=== PATIENT | female | born 1975 | race Caucasian/White ===

== ENCOUNTER 2018-07-24 09:46 | Emergency (ER) | payer BC ==
[2018-07-24 10:27] LABS: URINE BLOOD (Dip) POC 2+ (NEGATIVE); URINE GLUCOSE (Dip) POC Negative (NEGATIVE); URINE KETONES (Dip) POC Negative (NEGATIVE); URINE LEUKOCYTE EST (Dip) POC 2+ (NEGATIVE); URINE NITRITE (Dip) POC Negative (NEGATIVE); URINE TOTAL PROTEIN POC Negative (NEGATIVE)
[2018-07-24] MEDS: CIPROFLOXACIN 500 MG TAB PO (11:20)
== END 2018-07-24 11:39 | disposition home or self-care (01) ==
LOC: FTE 09:46
DX: N39.0 Urinary tract infection, site not specified (principal)
CPT/HCPCS: 81003; 81025; 99283

== ENCOUNTER 2018-11-16 08:01 | Inpatient (IN) | payer BC ==
[2018-11-16 08:35] LABS: ADD MAN DIFF? NO
[2018-11-16] MEDS: ONDANSETRON 4 MG INJ IV (08:38)
[2018-11-16] MEDS: LIDOCAINE/MYLANTA 40 ML BTL PO (08:38)
[2018-11-16] MEDS: KETOROLAC 15 MG INJ IV (08:38)
[2018-11-16] MEDS: BELLADONNA/PHENOBARBITAL TAB PO (08:38)
[2018-11-16] MEDS: SOD CHLORIDE 0.9% 1,000 ML IV ×2 (08:39→13:48)
[2018-11-16 08:41] LABS: WHITE BLOOD COUNT 22.7 10^3/ul (4.8-10.8)
[2018-11-16 08:41] LABS: BASOPHIL # 0.1 10^3/ul (0.0-0.1); BASOPHILS % 0.3 % (0.0-2.0); HEMATOCRIT 37.7 % (37.0-47.0); HEMOGLOBIN 12.5 g/dl (12.0-16.0); LYMPHOCYTES # 2.5 10^3/ul (0.8-2.9); LYMPHOCYTES % 11.1 % (15.0-51.0); MEAN CORPUSCULAR HEMOGLOBIN 28.2 pg (29.0-33.0); MEAN CORPUSCULAR HGB CONC 33.2 g/dl (32.0-37.0); MEAN CORPUSCULAR VOLUME 85.1 fl (82.0-101.0); MEAN PLATELET VOLUME 9.3 fl (7.4-10.4); MONOCYTE # 1.1 10^3/ul (0.3-0.9); MONOCYTES % 4.7 % (0.0-11.0); NEUTROPHILS % 83.4 % (39.0-77.0); PLATELET COUNT 343 10^3/UL (140-415); RED BLOOD COUNT 4.43 10^6/ul (4.20-5.40); RED CELL DISTRIBUTION WIDTH 13.7 % (11.5-14.5)
[2018-11-16 08:49] LABS: ADD UMIC YES; UR ASCORBIC ACID NEGATIVE (NEGATIVE); UR BILIRUBIN (Dip) NEGATIVE (NEGATIVE); UR BLOOD (Dip) 3+ mg/dL (NEGATIVE); UR CLARITY CLOUDY (CLEAR); UR COLOR YELLOW (YELLOW); UR GLUCOSE (Dip) NEGATIVE (NEGATIVE); UR KETONES (Dip) NEGATIVE (NEGATIVE); UR LEUKOCYTE ESTERASE (Dip) NEGATIVE Leu/ul (NEGATIVE); UR MUCUS FEW /HPF (NONE SEEN); UR NITRITE (Dip) NEGATIVE (NEGATIVE); UR RBC 12 /HPF (0-5); UR SPECIFIC GRAVITY (Dip) 1.027 (1.003-1.030); UR SQUAMOUS EPITHELIAL CELL MODERATE /HPF (FEW); UR TOTAL PROTEIN (Dip) 1+ mg/dl (NEGATIVE); UR UROBILINOGEN (Dip) NEGATIVE (NEGATIVE); UR WBC 3 /HPF (0-5)
[2018-11-16 08:59] LABS: PARTIAL THROMBOPLASTIN TIME 27.5 Sec (23.0-35.0); PROTIME 12.3 Sec (11.9-14.9)
[2018-11-16 09:14] LABS: ALANINE AMINOTRANSFERASE 28 IU/L (13-69); ALBUMIN 4.1 g/dl (3.3-4.9); ALBUMIN/GLOBULIN RATIO 1.13; ALKALINE PHOSPHATASE 83 IU/L (42-121); ANION GAP 12 (5-13); ASPARTATE AMINO TRANSFERASE 28 IU/L (15-46); BILIRUBIN,INDIRECT 0.7 mg/dl (0-1.1); BILIRUBIN,TOTAL 0.7 mg/dl (0.2-1.3); BLOOD UREA NITROGEN 9 mg/dl (7-20); CARBON DIOXIDE 24 mmol/L (21-31); CHLORIDE 100 mmol/L (97-110); CREATININE 0.51 mg/dl (0.44-1.00); Estimated GFR > 60 mL/min (>60); GLUCOSE 178 mg/dl (70-220); LIPASE 202 U/L (23-300); POTASSIUM 3.7 mmol/L (3.5-5.1); SODIUM 136 mmol/L (135-144); TOTAL PROTEIN 7.7 g/dl (6.1-8.1)
[2018-11-16] MEDS: PIPER-TAZO 3.375 GM IV (PMX) 100 ML IVPB (10:39)
[2018-11-16] MEDS ORDERED: morphine 2 MG INJ IV (13:00)
[2018-11-16] MEDS: morphine 2 MG INJ IV (13:07)
[2018-11-16] MEDS ORDERED: NACL 0.9% 3 ML SYG IV (13:30)
[2018-11-16] MEDS: DOCUSATE SODIUM 100 MG CAP PO (13:30)
[2018-11-16] MEDS ORDERED: ACETAMINOPHEN 325 MG TAB PO (13:30)
[2018-11-16] MEDS ORDERED: ONDANSETRON 4 MG INJ IV ×2 (13:30→16:00)
[2018-11-16] MEDS ORDERED: ZOLPIDEM 5 MG TAB PO (13:30)
[2018-11-16] MEDS ORDERED: ROCURONIUM 50 MG INJ (15:43)
[2018-11-16] MEDS ORDERED: PROPOFOL 20 ML ×2 (15:43→17:37)
[2018-11-16] MEDS ORDERED: ONDANSETRON 4 MG INJ (15:43)
[2018-11-16] MEDS ORDERED: ROPIVACAINE 0.5 % 30 ML VIAL (15:43)
[2018-11-16] MEDS ORDERED: METOCLOPRAMIDE 10 MG INJ (15:44)
[2018-11-16] MEDS ORDERED: KETOROLAC 30 MG INJ (15:44)
[2018-11-16] MEDS ORDERED: KETOROLAC 30 MG INJ IV (16:00)
[2018-11-16] MEDS ORDERED: DIPHENHYDRAMINE 50 MG INJ IV (16:00)
[2018-11-16] MEDS ORDERED: FENTAnyl 50 MCG/ML VIAL IV ×3 (16:00)
[2018-11-16] MEDS ORDERED: HYDROmorphONE 1 MG/5 ML IV SYRINGE IV ×2 (16:00)
[2018-11-16] MEDS ORDERED: MIDAZOLAM 1 MG/ML 2 ML INJ (16:20)
[2018-11-16] MEDS ORDERED: LIDOCAINE 2% JELLY 5 ML (16:29)
[2018-11-16] MEDS: LIDOCAINE 1% (MPF) 30 ML INJ (16:50)
[2018-11-16] MEDS: BUPIVACAINE 0.25%/EPI (SDV) 30 ML INJ (16:50)
[2018-11-16] MEDS ORDERED: NEOSTIGMINE 3 MG/3 ML SYRINGE (17:38)
[2018-11-16] MEDS ORDERED: GLYCOPYRROLATE 0.4 MG INJ (17:38)
[2018-11-16] MEDS ORDERED: FENTAnyl 50 MCG/ML VIAL (18:22)
[2018-11-16] MEDS: HYDROmorphONE 1 MG/5 ML IV SYRINGE IV (18:51)
[2018-11-16] MEDS: MEPERIDINE 25 MG INJ IV (18:51)
[2018-11-16] MEDS: HYDROmorphONE 0.5 MG/0.5 ML SYG IV (21:30)
[2018-11-16] MEDS: FAMOTIDINE 20 MG TAB PO (21:30)
[2018-11-17] MEDS: SOD CHLORIDE 0.9% 1,000 ML IV ×4 (00:34→21:09)
[2018-11-17] MEDS: PIPER-TAZO 3.375 GM IV (PMX) 100 ML IVPB ×5 (00:34→23:15)
[2018-11-17] MEDS: DOCUSATE SODIUM 100 MG CAP PO ×2 (00:34→13:52)
[2018-11-17] MEDS: HYDROmorphONE 0.5 MG/0.5 ML SYG IV ×3 (03:04→11:18)
[2018-11-17 05:28] LABS: ADD MAN DIFF? NO
[2018-11-17 05:33] LABS: WHITE BLOOD COUNT 16.8 10^3/ul (4.8-10.8)
[2018-11-17 05:33] LABS: BASOPHILS % 0.2 % (0.0-2.0); EOSINOPHILS % 0.1 % (0.0-7.0); HEMATOCRIT 30.4 % (37.0-47.0); HEMOGLOBIN 9.9 g/dl (12.0-16.0); LYMPHOCYTES # 2.5 10^3/ul (0.8-2.9); LYMPHOCYTES % 14.6 % (15.0-51.0); MEAN CORPUSCULAR HEMOGLOBIN 28.7 pg (29.0-33.0); MEAN CORPUSCULAR HGB CONC 32.6 g/dl (32.0-37.0); MEAN CORPUSCULAR VOLUME 88.1 fl (82.0-101.0); MEAN PLATELET VOLUME 9.6 fl (7.4-10.4); MONOCYTE # 1.1 10^3/ul (0.3-0.9); MONOCYTES % 6.7 % (0.0-11.0); NEUTROPHIL # 13.1 10^3/ul (1.6-7.5); PLATELET COUNT 266 10^3/UL (140-415); RED BLOOD COUNT 3.45 10^6/ul (4.20-5.40); RED CELL DISTRIBUTION WIDTH 14.6 % (11.5-14.5)
[2018-11-17 06:20] LABS: MAGNESIUM 1.9 mg/dl (1.7-2.5)
[2018-11-17 06:20] LABS: CHOL/HDL RATIO 3.9 RATIO; CHOLESTEROL 125 mg/dl (100-200); HDL CHOLESTEROL 32 mg/dl (34-88); LDL CHOLESTEROL,CALCULATED 71 mg/dl; TRIGLYCERIDES 110 mg/dl (0-149)
[2018-11-17 06:33] LABS: ALANINE AMINOTRANSFERASE 21 IU/L (13-69); ALBUMIN 2.9 g/dl (3.3-4.9); ALKALINE PHOSPHATASE 58 IU/L (42-121); ANION GAP 5 (5-13); ASPARTATE AMINO TRANSFERASE 18 IU/L (15-46); BILIRUBIN,INDIRECT 0.7 mg/dl (0-1.1); BILIRUBIN,TOTAL 0.7 mg/dl (0.2-1.3); BLOOD UREA NITROGEN 8 mg/dl (7-20); CALCIUM 7.4 mg/dl (8.4-10.2); CARBON DIOXIDE 26 mmol/L (21-31); CHLORIDE 108 mmol/L (97-110); CREATININE 0.65 mg/dl (0.44-1.00); Estimated GFR > 60 mL/min (>60); GLUCOSE 143 mg/dl (70-220); POTASSIUM 3.7 mmol/L (3.5-5.1); SODIUM 139 mmol/L (135-144); TOTAL PROTEIN 5.8 g/dl (6.1-8.1)
[2018-11-17 06:46] LABS: THYROID STIMULATING HORMONE 0.926 MIU/L (0.465-4.680)
[2018-11-17 07:06] LABS: HEMOGLOBIN A1C 7.4 % (0-5.9)
[2018-11-17] MEDS: FAMOTIDINE 20 MG TAB PO ×2 (08:25→21:10)
[2018-11-17] MEDS: HYDROCODONE/APAP (5/325) TAB PO ×2 (11:18→19:53)
[2018-11-17] MEDS ORDERED: GLUCOSE GEL 15 GRAM TUBE PO ×2 (13:30)
[2018-11-17] MEDS ORDERED: GLUCAGON 1 MG INJ IM (13:30)
[2018-11-17] MEDS ORDERED: GLUCOSE GEL 15 GRAM TUBE BUCCAL (13:30)
[2018-11-17] MEDS ORDERED: DEXTROSE 50% 50 ML SYRINGE IV ×2 (13:30)
[2018-11-17] MEDS: INSULIN ASPART [NOVOLOG] 3 ML PEN SC ×2 (17:22→21:00)
[2018-11-17] MEDS: FISH OIL 1,000 MG CAP PO (21:10)
[2018-11-18] MEDS: ACCU-CHEK XX ×2 (02:00→20:43)
[2018-11-18] MEDS: PIPER-TAZO 3.375 GM IV (PMX) 100 ML IVPB ×4 (05:41→23:33)
[2018-11-18] MEDS: SOD CHLORIDE 0.9% 1,000 ML IV ×3 (05:42→15:44)
[2018-11-18] MEDS: HYDROCODONE/APAP (5/325) TAB PO ×3 (06:05→23:29)
[2018-11-18 07:13] LABS: ADD MAN DIFF? NO
[2018-11-18 07:25] LABS: BASOPHIL # 0.1 10^3/ul (0.0-0.1); BASOPHILS % 0.5 % (0.0-2.0); EOSINOPHILS # 0.1 10^3/ul (0.0-0.5); EOSINOPHILS % 0.5 % (0.0-7.0); HEMATOCRIT 31.2 % (37.0-47.0); LYMPHOCYTES # 2.7 10^3/ul (0.8-2.9); MEAN CORPUSCULAR HEMOGLOBIN 28.4 pg (29.0-33.0); MEAN CORPUSCULAR HGB CONC 32.1 g/dl (32.0-37.0); MEAN CORPUSCULAR VOLUME 88.6 fl (82.0-101.0); MEAN PLATELET VOLUME 9.6 fl (7.4-10.4); MONOCYTE # 0.7 10^3/ul (0.3-0.9); MONOCYTES % 5.5 % (0.0-11.0); NEUTROPHIL # 9.4 10^3/ul (1.6-7.5); PLATELET COUNT 244 10^3/UL (140-415); RED BLOOD COUNT 3.52 10^6/ul (4.20-5.40); RED CELL DISTRIBUTION WIDTH 14.6 % (11.5-14.5)
[2018-11-18 07:44] LABS: ANION GAP 5 (5-13); BLOOD UREA NITROGEN 7 mg/dl (7-20); CALCIUM 7.5 mg/dl (8.4-10.2); CARBON DIOXIDE 26 mmol/L (21-31); CHLORIDE 108 mmol/L (97-110); CREATININE 0.65 mg/dl (0.44-1.00); Estimated GFR > 60 mL/min (>60); GLUCOSE 118 mg/dl (70-220); POTASSIUM 3.4 mmol/L (3.5-5.1); SODIUM 139 mmol/L (135-144)
[2018-11-18] MEDS: INSULIN ASPART [NOVOLOG] 3 ML PEN SC ×4 (08:00→20:43)
[2018-11-18] MEDS: FAMOTIDINE 20 MG TAB PO ×2 (08:59→20:43)
[2018-11-18] MEDS: FISH OIL 1,000 MG CAP PO ×2 (08:59→20:42)
[2018-11-18] MEDS: POTASSIUM CHLORIDE (SR) 10 MEQ TAB PO (16:30)
[2018-11-18] MEDS: DOCUSATE SODIUM 100 MG CAP PO (20:43)
[2018-11-19] MEDS: PIPER-TAZO 3.375 GM IV (PMX) 100 ML IVPB ×4 (05:27→23:23)
[2018-11-19 05:52] LABS: ADD MAN DIFF? NO
[2018-11-19 05:57] LABS: WHITE BLOOD COUNT 11.7 10^3/ul (4.8-10.8)
[2018-11-19 05:57] LABS: BASOPHIL # 0.1 10^3/ul (0.0-0.1); BASOPHILS % 0.6 % (0.0-2.0); EOSINOPHILS # 0.2 10^3/ul (0.0-0.5); EOSINOPHILS % 1.9 % (0.0-7.0); HEMATOCRIT 31.4 % (37.0-47.0); HEMOGLOBIN 10.2 g/dl (12.0-16.0); LYMPHOCYTES # 3.4 10^3/ul (0.8-2.9); LYMPHOCYTES % 29.2 % (15.0-51.0); MEAN CORPUSCULAR HEMOGLOBIN 28.3 pg (29.0-33.0); MEAN CORPUSCULAR HGB CONC 32.5 g/dl (32.0-37.0); MEAN PLATELET VOLUME 9.9 fl (7.4-10.4); MONOCYTE # 0.7 10^3/ul (0.3-0.9); MONOCYTES % 6.3 % (0.0-11.0); NEUTROPHIL # 7.2 10^3/ul (1.6-7.5); NEUTROPHILS % 61.7 % (39.0-77.0); PLATELET COUNT 274 10^3/UL (140-415); RED BLOOD COUNT 3.61 10^6/ul (4.20-5.40); RED CELL DISTRIBUTION WIDTH 13.9 % (11.5-14.5)
[2018-11-19 06:20] LABS: MAGNESIUM 2.1 mg/dl (1.7-2.5)
[2018-11-19 06:20] LABS: PHOSPHORUS 3.5 mg/dl (2.5-4.9)
[2018-11-19 06:29] LABS: ANION GAP 5 (5-13); BLOOD UREA NITROGEN 7 mg/dl (7-20); CALCIUM 8.1 mg/dl (8.4-10.2); CARBON DIOXIDE 28 mmol/L (21-31); CHLORIDE 105 mmol/L (97-110); CREATININE 0.64 mg/dl (0.44-1.00); Estimated GFR > 60 mL/min (>60); GLUCOSE 102 mg/dl (70-220); POTASSIUM 3.6 mmol/L (3.5-5.1); SODIUM 138 mmol/L (135-144)
[2018-11-19] MEDS: INSULIN ASPART [NOVOLOG] 3 ML PEN SC ×4 (08:00→20:41)
[2018-11-19] MEDS: FAMOTIDINE 20 MG TAB PO ×2 (08:12→20:41)
[2018-11-19] MEDS: DOCUSATE SODIUM 100 MG CAP PO ×2 (08:12→20:41)
[2018-11-19] MEDS: FISH OIL 1,000 MG CAP PO ×2 (08:12→20:41)
[2018-11-19] MEDS: HYDROCODONE/APAP (5/325) TAB PO (08:16)
[2018-11-19] MEDS: ACETAMINOPHEN 325 MG TAB PO (17:33)
[2018-11-19] MEDS: ACCU-CHEK XX (23:23)
[2018-11-20] MEDS: HYDROCODONE/APAP (5/325) TAB PO ×2 (04:36→18:01)
[2018-11-20] MEDS: PIPER-TAZO 3.375 GM IV (PMX) 100 ML IVPB ×3 (05:58→18:01)
[2018-11-20 06:05] LABS: ADD MAN DIFF? NO
[2018-11-20 06:12] LABS: BASOPHIL # 0.1 10^3/ul (0.0-0.1); BASOPHILS % 0.7 % (0.0-2.0); EOSINOPHILS # 0.3 10^3/ul (0.0-0.5); EOSINOPHILS % 2.8 % (0.0-7.0); HEMOGLOBIN 10.8 g/dl (12.0-16.0); LYMPHOCYTES # 2.6 10^3/ul (0.8-2.9); LYMPHOCYTES % 27.2 % (15.0-51.0); MEAN CORPUSCULAR HEMOGLOBIN 28.8 pg (29.0-33.0); MEAN CORPUSCULAR HGB CONC 33.8 g/dl (32.0-37.0); MEAN CORPUSCULAR VOLUME 85.3 fl (82.0-101.0); MEAN PLATELET VOLUME 9.3 fl (7.4-10.4); MONOCYTE # 0.6 10^3/ul (0.3-0.9); NEUTROPHIL # 5.9 10^3/ul (1.6-7.5); NEUTROPHILS % 62.7 % (39.0-77.0); PLATELET COUNT 316 10^3/UL (140-415); RED BLOOD COUNT 3.75 10^6/ul (4.20-5.40); RED CELL DISTRIBUTION WIDTH 13.5 % (11.5-14.5)
[2018-11-20 06:12] LABS: WHITE BLOOD COUNT 9.4 10^3/ul (4.8-10.8)
[2018-11-20 06:43] LABS: PHOSPHORUS 4.7 mg/dl (2.5-4.9)
[2018-11-20 06:43] LABS: MAGNESIUM 1.9 mg/dl (1.7-2.5)
[2018-11-20 06:46] LABS: ANION GAP 6 (5-13); BLOOD UREA NITROGEN 8 mg/dl (7-20); CALCIUM 8.4 mg/dl (8.4-10.2); CARBON DIOXIDE 29 mmol/L (21-31); CHLORIDE 103 mmol/L (97-110); CREATININE 0.67 mg/dl (0.44-1.00); Estimated GFR > 60 mL/min (>60); GLUCOSE 124 mg/dl (70-220); POTASSIUM 3.3 mmol/L (3.5-5.1); SODIUM 138 mmol/L (135-144)
[2018-11-20] MEDS: INSULIN ASPART [NOVOLOG] 3 ML PEN SC ×4 (08:00→20:46)
[2018-11-20] MEDS: FISH OIL 1,000 MG CAP PO ×2 (09:20→20:43)
[2018-11-20] MEDS: FAMOTIDINE 20 MG TAB PO ×2 (09:20→20:43)
[2018-11-20] MEDS: DOCUSATE SODIUM 100 MG CAP PO ×2 (09:20→20:43)
[2018-11-20] MEDS: POTASSIUM CHLORIDE (SR) 20 MEQ TAB PO ×2 (12:26→14:36)
[2018-11-21] MEDS: PIPER-TAZO 3.375 GM IV (PMX) 100 ML IVPB ×3 (00:05→11:40)
[2018-11-21] MEDS: ACCU-CHEK XX (02:00)
[2018-11-21] MEDS: INSULIN ASPART [NOVOLOG] 3 ML PEN SC ×2 (08:00→11:41)
[2018-11-21] MEDS: FAMOTIDINE 20 MG TAB PO (08:12)
[2018-11-21] MEDS: DOCUSATE SODIUM 100 MG CAP PO (08:13)
[2018-11-21] MEDS: HYDROCODONE/APAP (5/325) TAB PO (08:13)
[2018-11-21] MEDS: FISH OIL 1,000 MG CAP PO (08:13)
== END 2018-11-21 16:05 | disposition home health service (06) | DRG 340 ==
LOC: E/R 08:01 → PP2 10:39
PROVIDERS: Family Medicine
PROC: 0DTJ4ZZ Resection of Appendix, Percutaneous Endoscopic Approach (ICD-10-PCS; principal; 2018-11-16 16:00)
PROC: 0UB14ZZ Excision of Left Ovary, Percutaneous Endoscopic Approach (ICD-10-PCS; 2018-11-16 16:00)
DX: K35.32 Acute appendicitis with perforation, localized peritonitis, and gangrene, without abscess (principal); N83.202 Unspecified ovarian cyst, left side; E11.9 Type 2 diabetes mellitus without complications; K76.0 Fatty (change of) liver, not elsewhere classified; E66.9 Obesity, unspecified; E78.5 Hyperlipidemia, unspecified; Z68.31 Body mass index [BMI] 31.0-31.9, adult
CPT/HCPCS: 36415; 74176; 76830; 76856; 80048; 80053; 80061; 81001; 81025; 82962; 83036; 83690; 83735; 84100; 84443; 84703; 85025; 85610; 85730; 88304; 88305; 96361; 96374; 96375; 99285-25